=== PATIENT | male | born 2000 | race Two or more races ===

== ENCOUNTER 2025-07-06 12:50 | Emergency (ER) | payer OTHER ==
[~2025-07-06] VITALS: Ht 172.7 cm; Wt 72.6 kg
[2025-07-06 13:25] VITALS: BP 133/108; TEMP 98.1; O2SAT 100
== END 2025-07-06 13:25 | disposition home or self-care (01) ==
LOC: ER 12:59
DX: Z04.1 Encounter for examination and observation following transport accident (principal); V87.9XXA Person injured in other specified (collision)(noncollision) transport accidents involving nonmotor vehicle (traffic), initial encounter; Y93.89 Activity, other specified; Y92.410 Unspecified street and highway as the place of occurrence of the external cause; Y99.9 Unspecified external cause status